=== PATIENT | male | born 1965 | race Caucasian/White ===

== ENCOUNTER 2019-01-07 17:26 | Emergency (ER) | payer MEDICAID ==
[~2019-01-07] VITALS: Ht 170.2 cm; Wt 61.4 kg
[2019-01-07 19:07] LABS: BASOPHILS # (AUTO) 0.1 X10'3 (0-0.2); EOSINOPHILS # (AUTO) 0.3 X10'3 (0-0.9); EOSINOPHILS % (AUTO) 4.6 % (0-6); HEMATOCRIT 43.9 % (42.0-52.0); HEMOGLOBIN 14.9 g/dl (14.0-17.9); LYMPHOCYTES # (AUTO) 1.9 X10'3 (1.1-4.8); LYMPHOCYTES % (AUTO) 26.7 % (21-51); MEAN CORPUSCULAR HEMOGLOBIN 29.3 PG (27.0-31.0); MEAN CORPUSCULAR HGB CONC 33.9 g/dL (33.0-36.5); MEAN CORPUSCULAR VOLUME 86.6 FL (78-98); MEAN PLATELET VOLUME 8.9 FL (7.4-10.4); MONOCYTES # (AUTO) 0.4 X10'3 (0-0.9); NEUTROPHILS # (AUTO) 4.3 X10'3 (1.8-7.7); NEUTROPHILS % (AUTO) 61.7 % (42-75); PLATELET COUNT 198 X10'3 (140-440); RED BLOOD COUNT 5.07 X10'6 (4.70-6.10); RED CELL DISTRIBUTION WIDTH 15.2 % (11.5-14.5)
[2019-01-07 19:23] LABS: ALANINE AMINOTRANSFERASE 32 U/L (12-78); ALBUMIN 3.7 G/DL (3.4-5.0); ALKALINE PHOSPHATASE 98 IU/L (46-116); ANION GAP 6 (8-16); ASPARTATE AMINO TRANSFERASE 8 U/L (10-37); BILIRUBIN,TOTAL 0.3 MG/DL (0.1-1.0); BLOOD UREA NITROGEN 24 MG/DL (7-18); BUN/CREATININE RATIO 14.8 (5.4-32.0); CALCIUM 8.6 MG/DL (8.5-10.1); CHLORIDE 103 MMOL/L (99-107); CREATININE 1.62 MG/DL (0.60-1.10); GLUCOSE 99 MG/DL (70-104); SODIUM 138 MMOL/L (135-145); TOTAL CARBON DIOXIDE 29.5 MMOL/L (24-32); TOTAL PROTEIN 7.4 G/DL (6.4-8.2); eGFR 45 ML/MIN
[2019-01-07 19:28] LABS: PARTIAL THROMBOPLASTIN TIME 28 SECONDS (22-32)
[2019-01-07 20:26] VITALS: BP 124/79
== END 2019-01-07 20:28 | disposition home or self-care (01) ==
LOC: ER 17:40
DX: R07.1 Chest pain on breathing (principal); K21.9 Gastro-esophageal reflux disease without esophagitis; Z88.2 Allergy status to sulfonamides; Z85.118 Personal history of other malignant neoplasm of bronchus and lung
CPT/HCPCS: 36415; 71045; 80053; 83880; 84484; 85025; 85610; 85730; 99284

== ENCOUNTER 2023-01-18 17:52 | Inpatient (IN) | payer MEDICAID ==
[~2023-01-18] VITALS: Ht 170.2 cm; Wt 65.9 kg
[2023-01-18 18:39] LABS: BASOPHILS # (AUTO) 0.1 X10'3 (0-0.2); BASOPHILS % (AUTO) 1.2 % (0-1); EOSINOPHILS # (AUTO) 0.4 X10'3 (0-0.9); EOSINOPHILS % (AUTO) 5.8 % (0-6); HEMATOCRIT 35.2 % (42.0-52.0); HEMOGLOBIN 11.9 g/dl (14.0-17.9); LYMPHOCYTES # (AUTO) 1.3 X10'3 (1.1-4.8); LYMPHOCYTES % (AUTO) 21.3 % (21-51); MEAN CORPUSCULAR HEMOGLOBIN 29.6 PG (27.0-31.0); MEAN CORPUSCULAR HGB CONC 33.7 g/dL (33.0-36.5); MEAN PLATELET VOLUME 10.2 FL (7.4-10.4); MONOCYTES # (AUTO) 0.4 X10'3 (0-0.9); NEUTROPHILS # (AUTO) 3.9 X10'3 (1.8-7.7); NEUTROPHILS % (AUTO) 64.7 % (42-75); PLATELET COUNT 187 X10'3 (140-440); RED CELL DISTRIBUTION WIDTH 16.9 % (11.5-14.5); WHITE BLOOD COUNT 6.1 X10'3 (4.5-11.0)
[2023-01-18 18:56] LABS: ALANINE AMINOTRANSFERASE 206 U/L (12-78); ALBUMIN 3.6 G/DL (3.4-5.0); ALKALINE PHOSPHATASE 413 IU/L (46-116); ANION GAP 11 (8-16); ASPARTATE AMINO TRANSFERASE 118 U/L (10-37); BILIRUBIN,TOTAL 1.7 MG/DL (0.1-1.0); BLOOD UREA NITROGEN 17 MG/DL (7-18); BUN/CREATININE RATIO 10.2 (10.0-20.0); CALCIUM 9.3 MG/DL (8.5-10.1); CHLORIDE 106 MMOL/L (99-107); CREATININE 1.67 MG/DL (0.60-1.10); GLUCOSE 121 MG/DL (70-104); LIPASE 694 U/L (73-393); POTASSIUM 3.5 MMOL/L (3.5-5.1); SODIUM 141 MMOL/L (135-145); TOTAL PROTEIN 7.3 G/DL (6.4-8.2); eGFR 43 ML/MIN
[2023-01-18 20:42] LABS: CLARITY,URINE CLEAR (Clear); GLUCOSE, URINE NEGATIVE (Neg); KETONES,URINE NEGATIVE (Neg); LEUKOCYTE ESTERASE ,URINE NEGATIVE (Neg); NITRITES, URINE NEGATIVE (Neg); OCCULT BLOOD,URINE NEGATIVE (Neg); PH,URINE 5.5 (4.8-8.0); PROTEIN,URINE TRACE mg/dl (Neg); UROBILINOGEN,URINE 0.2 E.U/dL (0.2-1.0)
[2023-01-18 20:54] LABS: COLOR,URINE DARK YELLOW (Yellow)
[2023-01-18 20:55] LABS: UA COLLECTION TYPE CLN CATCH MIDSTREAM
[2023-01-18 21:00] LABS: WBC,URINE 0-4 /HPF (0-4)
[2023-01-18 21:01] LABS: RBC,URINE 0-2 /HPF (0-2)
[2023-01-18 21:02] LABS: BACTERIA,URINE FEW /HPF (Neg); MUCUS STRANDS MODERATE /LPF (Neg); SQUAMOUS EPITHELIAL CELL,UR FEW /LPF (FEW)
[2023-01-19] VITALS (15 sets, daily range): BP systolic 110–136; BP diastolic 70–93; PULSE 57–96; RESP 12–18; TEMP 97.6–98; O2SAT 94–100
[2023-01-19] MEDS ORDERED: normal saline 1000ml 1,000 ML IV ONE (00:25)
[2023-01-19] MEDS ORDERED: piperacillin/tazo 4.5gm/100ml 100 ML IV ONE (00:30)
[2023-01-19] MEDS ORDERED: potassium Cl 40MEQ/1/2NS 520ml 520 ML IV PRN (02:00)
[2023-01-19] MEDS ORDERED: potassium Cl 20 mEq SR tablet PO PRN ×2 (02:00)
[2023-01-19] MEDS ORDERED: ondansetron/PF 4mg/2ml inj IV PRN (02:00)
[2023-01-19] MEDS ORDERED: morphine 2 MG/ML inj. syringe IV PRN (02:00)
[2023-01-19] MEDS ORDERED: magnesium 4gm in 100ml NS 100 ML IV PRN (02:00)
[2023-01-19] MEDS: normal saline 1000ml 1,000 ML IV SCH ×3 (02:46→22:00)
--- NOTE | 2023-01-19 03:02 | NUR ---
pt placed on hospital bed.
[2023-01-19] MEDS ORDERED: NO HOME MEDS (03:21)
[2023-01-19 03:32] LABS: LIPASE 469 U/L (73-393); MAGNESIUM 1.6 MG/DL (1.5-2.4)
--- NOTE | 2023-01-19 06:40 | NUR ---
RN ATTEMPTED TO CALL REPORT AND THERE WAS CONFUSION ABOUT WHICH RN WILL TAKE PT. RN WILL ATTEMPT TO CALL BACK AFTER CALLING REPORT ON ANOTHER PT.
--- NOTE | 2023-01-19 07:23 | NUR ---
RN ATTEMPTED TO CALL AND GIVE REPORT TO RADHA ABBOTT AND SHE IS IN THE RM WITH A PT. RADHA WILL CALL BACK.
[2023-01-19] MEDS: docusate sod 100mg capsule PO SCH ×2 (08:00→20:00)
[2023-01-19] MEDS: K and/or MAG REPLACEMENT MC SCH ×2 (08:00→20:00)
[2023-01-19] MEDS: morphine 2 MG/ML inj. syringe IV PRN ×2 (08:07→17:19)
[2023-01-19 08:50] LABS: ALANINE AMINOTRANSFERASE 216 U/L (12-78); ALBUMIN 3.3 G/DL (3.4-5.0); ALKALINE PHOSPHATASE 381 IU/L (46-116); ANION GAP 15 (8-16); ASPARTATE AMINO TRANSFERASE 149 U/L (10-37); BILIRUBIN,TOTAL 1.7 MG/DL (0.1-1.0); BLOOD UREA NITROGEN 13 MG/DL (7-18); BUN/CREATININE RATIO 9.1 (10.0-20.0); CALCIUM 8.9 MG/DL (8.5-10.1); CHLORIDE 109 MMOL/L (99-107); CREATININE 1.43 MG/DL (0.60-1.10); GLUCOSE 98 MG/DL (70-104); POTASSIUM 3.5 MMOL/L (3.5-5.1); SODIUM 142 MMOL/L (135-145); TOTAL PROTEIN 6.7 G/DL (6.4-8.2); eGFR 51 ML/MIN
--- NOTE | 2023-01-19 09:13 | NUR ---
katie received report from summer in [place]
[2023-01-19] MEDS ORDERED: fentaNYL/PF 50MCG/1 ML 2ML syringe ONE (15:07)
[2023-01-19] MEDS ORDERED: glucagon, human recombinant 1mg kit ONE (15:07)
[2023-01-19] MEDS ORDERED: LIDOcaine Viscous 15ml cup ONE (15:08)
[2023-01-19] MEDS ORDERED: diphenhydrAMINE 50 mg/ml inj ONE (15:08)
[2023-01-19] MEDS ORDERED: MIDAZolam 1 MG/ML 5ML VIAL ONE (15:08)
[2023-01-19] MEDS ORDERED: iohexol 300mg/ml 100ml inj. ONE (15:08)
[2023-01-19] MEDS ORDERED: levoFLOXACIN-Levaquin 500mg/D5 100 ML IV ONE (15:08)
--- NOTE | 2023-01-19 18:23 | NUR ---
gave report to september,
[2023-01-19] MEDS ORDERED: enoxaparin 40mg/0.4ml syringe SQ SCH (20:00)
[2023-01-20] MEDS: normal saline 1000ml 1,000 ML IV SCH ×2 (04:43→16:08)
[2023-01-20 06:00] VITALS: BP 99/52; PULSE 78; RESP 18; TEMP 97.6; O2SAT 100
[2023-01-20 06:20] LABS: BASOPHILS # (AUTO) 0.1 X10'3 (0-0.2); BASOPHILS % (AUTO) 1.4 % (0-1); EOSINOPHILS # (AUTO) 0.2 X10'3 (0-0.9); EOSINOPHILS % (AUTO) 3.6 % (0-6); HEMATOCRIT 36.3 % (42.0-52.0); LYMPHOCYTES # (AUTO) 1.2 X10'3 (1.1-4.8); LYMPHOCYTES % (AUTO) 21.8 % (21-51); MEAN CORPUSCULAR HEMOGLOBIN 29.3 PG (27.0-31.0); MEAN CORPUSCULAR HGB CONC 33.1 g/dL (33.0-36.5); MEAN CORPUSCULAR VOLUME 88.7 FL (78-98); MEAN PLATELET VOLUME 10.1 FL (7.4-10.4); MONOCYTES # (AUTO) 0.4 X10'3 (0-0.9); MONOCYTES % (AUTO) 6.5 % (2-12); NEUTROPHILS # (AUTO) 3.8 X10'3 (1.8-7.7); NEUTROPHILS % (AUTO) 66.7 % (42-75); PLATELET COUNT 174 X10'3 (140-440); RED CELL DISTRIBUTION WIDTH 16.8 % (11.5-14.5); WHITE BLOOD COUNT 5.6 X10'3 (4.5-11.0)
[2023-01-20 06:31] LABS: ALANINE AMINOTRANSFERASE 195 U/L (12-78); ALBUMIN/GLOBULIN RATIO 0.9 (1.1-1.5); ALKALINE PHOSPHATASE 384 IU/L (46-116); ANION GAP 15 (8-16); ASPARTATE AMINO TRANSFERASE 115 U/L (10-37); BILIRUBIN,TOTAL 2.3 MG/DL (0.1-1.0); BLOOD UREA NITROGEN 17 MG/DL (7-18); BUN/CREATININE RATIO 12.3 (10.0-20.0); CALCIUM 8.7 MG/DL (8.5-10.1); CHLORIDE 105 MMOL/L (99-107); CREATININE 1.38 MG/DL (0.60-1.10); GLUCOSE 62 MG/DL (70-104); LIPASE 159 U/L (73-393); MAGNESIUM 1.6 MG/DL (1.5-2.4); POTASSIUM 3.9 MMOL/L (3.5-5.1); SODIUM 140 MMOL/L (135-145); TOTAL CARBON DIOXIDE 20.1 MMOL/L (24-32); TOTAL PROTEIN 6.4 G/DL (6.4-8.2); eGFR 53 ML/MIN
[2023-01-20 08:00] VITALS: RESP 18; O2SAT 100
[2023-01-20] MEDS: K and/or MAG REPLACEMENT MC SCH (08:00)
[2023-01-20] MEDS: docusate sod 100mg capsule PO SCH (08:55)
[2023-01-20] MEDS: acetaminophen 325mg tablet PO PRN ×2 (08:56→16:08)
[2023-01-20 10:00] VITALS: BP 124/69; PULSE 78; RESP 15; TEMP 97.9; O2SAT 99
--- NOTE | 2023-01-20 18:00 | NUR ---
I have reviewed and agree with the interventions, assessments, and documentation by Halley Knight LVN.
[2023-01-20] MEDS ORDERED: dextrose 50%-water 50ml dispensing syringe IV ONE (18:50)
--- NOTE | 2023-01-20 19:14 | NUR ---
Patient has just left for transfer to [facility] in [place] via [facility] . A&O x4, in no distress, accu check now 187 and [facility] aware of patient just receiving dextrose for low blood sugar of 52. in room and making sure patient has all belongings. Addendum: 01/20/23 at 1921 by Jennifer Tyler RN promotions intern giving report to [facility]BBOTT.
== END 2023-01-20 19:15 | disposition short-term general hospital (02) | DRG 282 ==
LOC: ER 17:52 → ED HOLD 01-19 02:09 → ORTHO 4S 01-19 07:56
PROVIDERS: ADMIT Family Medicine; ATTEND Internal Medicine
PROC: 0DB98ZX Excision of Duodenum, Via Natural or Artificial Opening Endoscopic, Diagnostic (ICD-10-PCS; principal; 2023-01-19)
DX: K86.9 Disease of pancreas, unspecified (principal); K31.5 Obstruction of duodenum; K83.1 Obstruction of bile duct; K21.00 Gastro-esophageal reflux disease with esophagitis, without bleeding; K86.1 Other chronic pancreatitis; N18.30 Chronic kidney disease, stage 3 unspecified; K44.9 Diaphragmatic hernia without obstruction or gangrene; K31.89 Other diseases of stomach and duodenum; K29.70 Gastritis, unspecified, without bleeding; R74.01 Elevation of levels of liver transaminase levels; R19.7 Diarrhea, unspecified; Z85.118 Personal history of other malignant neoplasm of bronchus and lung; Z88.2 Allergy status to sulfonamides; Z87.891 Personal history of nicotine dependence; Z80.41 Family history of malignant neoplasm of ovary
CPT/HCPCS: 36415; 43239; 74176; 76700; 80053; 81001; 82948; 83605; 83690; 83735; 84145; 85025; 87040; 87081; 99152; 99153; 99285; A4620; C1769; G0378; J1200; J1610; J1650; J1956; J2250; J2270; J2543; J3010; J3490; J7030; Q9967

== ENCOUNTER 2023-08-25 11:30 | Outpatient (CLI) | payer MEDICAID ==
[~2023-08-25 11:30] MED LIST: NO HOME MEDS
[2023-08-25] MEDS ORDERED: iohexol 300mg/ml 100ml inj. ONE (12:12)
== END 2023-08-25 23:59 | disposition home or self-care (01) ==
LOC: RAD 11:30
PROVIDERS: ATTEND Physician Assistant Medical
DX: C25.9 Malignant neoplasm of pancreas, unspecified (principal); K86.89 Other specified diseases of pancreas; J90 Pleural effusion, not elsewhere classified; M47.816 Spondylosis without myelopathy or radiculopathy, lumbar region
CPT/HCPCS: 71270; 74178; J3490; Q9967